=== PATIENT | male | born 2000 | race Caucasian/White ===

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

== ENCOUNTER 2019-11-10 23:28 | Emergency (ER) | payer OTHER, MEDICAID, SELFPAY ==
[2019-11-10 23:31] VITALS: BP 145/96; PULSE 138; RESP 20; TEMP 37.2; O2SAT 99
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
[2019-11-11] VITALS (10 sets, daily range): BP systolic 110–146; BP diastolic 67–90; PULSE 71–125; RESP 16–20; TEMP 36.4–36.6; O2SAT 98–100
[2019-11-11 00:01] LABS: Add Manual Diff / Slide Review NO; Basophils Absolute Auto 0 /uL (0-100); Basophils Percent Auto 0.2 % (0-2); Eosinophils Absolute Auto 0 /uL (0-450); Eosinophils Percent Auto 0.3 % (2-4); Hematocrit 46.4 % (41-53); Hemoglobin 15.8 g/dL (13.5-17.5); Lymphocytes Absolute Auto 1900 /uL (1100-4500); Lymphocytes Percent Auto 18.3 % (25-40); Mean Corpuscular HGB Conc 34.1 % (30-36); Mean Corpuscular Hemoglobin 28.7 PG (26-34); Mean Corpuscular Volume 84.2 fL (80-100); Monocytes Absolute Auto 700 /uL (0-900); Neutrophils Absolute Auto 7500 /uL (1500-7000); Neutrophils Percent Auto 74.2 % (50-75); Platelet Count 378 X10^3/uL (150-400); Red Blood Cell Count 5.51 X10^6/uL (4.5-5.9); Red Cell Distribution Width 13.6 % (11.6-14.8); White Blood Cell Count 10.1 X10^3/uL (4.5-11.0)
[2019-11-11 00:12] LABS: COVID19 -Nasal RAPID Negative (Negative)
[2019-11-11 00:18] LABS: Acetaminophen < 10 ug/mL (10-30); Alanine Aminotransferase 39 IU/L (<50); Albumin 4.9 g/dL (3.5-5.0); Albumin Globulin Ratio 1.4 (1.0-2.8); Alkaline Phosphatase 100 U/L (38-126); Aspartate Aminotransferase 41 IU/L (17-59); BUN Creatinine Ratio 11.8 (6-22); Bilirubin Total 1.6 mg/dL (0.2-1.3); Blood Urea Nitrogen 15 mg/dL (9-20); Calcium 9.7 mg/dL (8.4-10.2); Carbon Dioxide 27 mmol/L (22-32); Chloride 103 mmol/L (98-107); Estimated Glomerular Filt Rate > 60.0 mL/min (>60); Ethanol (ETOH) < 10 mg/dL; Globulin 3.5 g/dL (1.7-4.1); Glucose 114 mg/dL (70-100); HEMOLYSIS < 15 (0-50); Lipase 26 U/L (23-300); Potassium 3.8 mmol/L (3.4-5.1); Salicylate < 1.0 mg/dL (<20); Sodium 142 mmol/L (137-145); Total Protein 8.4 g/dL (6.3-8.2)
--- NOTE | 2019-11-11 00:35 | PC.NURSE ---
Pt very talkative about a variety of subjects that are completly unrelated to each other. Pt starts on one string of thought and then moves quickly to the next. between crying and laughing
[2019-11-11 00:55] LABS: Thyroid Stimulating Hormone 11.8 uIU/mL (0.47-4.68)
--- NOTE | 2019-11-11 01:02 | PC.NURSE ---
Pts mother and ED are in the RM speaking with the Pt
--- NOTE | 2019-11-11 01:15 | PC.NURSE ---
Pts mother is in Rm talking with Pt
--- NOTE | 2019-11-11 01:18 | PC.NURSE ---
Pts Mother is Going home for the evening. Mother would Like a call in the morning from [employer] or once a plan has been reached. Mothers name is : Ellen Haro
[2019-11-11 02:30] LABS: Free T3, Triiodothyronine Free 4.71 pg/mL (2.77-5.27); Free T4, Direct Thyroxine 1.45 ng/dL (0.78-2.19)
--- NOTE | 2019-11-11 04:38 | PC.NURSE ---
Pt resting on mattress, eyes closed chest rising and falling
--- NOTE | 2019-11-11 07:25 | PC.NURSE ---
patient calm and cooperative, asked to use the phone and was given access to the phone at nurses station outside rm 13. given a urinal and was not able to give sample.
--- NOTE | 2019-11-11 07:43 | PC.NURSE ---
patient make phone calls to his Mother and patient ask for social workers.
--- NOTE | 2019-11-11 09:04 | PC.NURSE ---
patient is talking to the shearing [employer] worker, patient is calm ,well cooperate and relax.
[2019-11-11 09:15] LABS: Bacteria Urine None Seen; RBC Urine None Seen (0-5/HPF); WBC Urine None Seen (0-5/HPF)
[2019-11-11 09:16] LABS: Appearance Urine UA CLEAR; Bilirubin Urine UA NEGATIVE (NEGATIVE); Color Urine UA YELLOW; Glucose Urine UA NEGATIVE (Negative); Ketones Urine UA NEGATIVE (NEGATIVE); Leukocyte Esterase Urine UA NEGATIVE (NEGATIVE); Nitrite Urine UA NEGATIVE (Negative); Occult Blood Urine UA NEGATIVE (Negative); Protein Urine UA TRACE (Negative); Specific Gravity Urine UA 1.025 (1.000-1.035); Urobilinogen Urine UA 0.2 E.U./dL (0.2); pH Urine UA 5.5 (4.5-8.0)
[2019-11-11 09:20] LABS: UR Morphine/Opiate cutoff 300 Negative (Negative); Ur Creatinine Normal (Normal); Ur Specific Gravity Normal (Normal); Urine Amphetamines Positive (Negative); Urine Barbiturates Negative (Negative); Urine Benzodiazepines Negative (Negative); Urine Cocaine Negative (Negative); Urine MDMA Negative (Negative); Urine Methadone Negative (Negative); Urine Methamphetamines Negative (Negative); Urine Oxycodone Negative (Negative); Urine Phencyclidine Negative (Negative); Urine Tetrahydrocannabinol Positive (Negative); Urine Tricyclic Antidepressant Negative (Negative); Urine pH Normal (Normal)
[2019-11-11 09:22] LABS: Culture Indicated Urine Cult Not Indicated; Hyaline Casts Urine 1-5/LPF; Mucus Urine 3+ (Negative)
--- NOTE | 2019-11-11 11:01 | PC.NURSE ---
patient asking to talk to one of the social workers patient said he wanted to tell social workers about his happy thoughts.
--- NOTE | 2019-11-11 11:54 | PC.NURSE ---
assist patient to the bathroom patient was calm and relax while walking to the bathroom
--- NOTE | 2019-11-11 13:32 | PC.NURSE ---
walk with patient to the bathroom patient was calm
--- NOTE | 2019-11-11 14:43 | PC.NURSE ---
Pt security public safety officer reports to this RN that pt is crying, wants to talk to his sister. Pt offered use of the phone. Given water.
--- NOTE | 2019-11-11 14:47 | PC.NURSE ---
patient was crying I asked if he needed something patient said his okay i also asked if patient want to talk to his sister patient dont respond.
--- NOTE | 2019-11-11 14:53 | PC.NURSE ---
walked patient to the bathroom patient angry patient said he cant see clearly patient want his eye glasses asked patient if he has with him patient said he broke his glasses
--- NOTE | 2019-11-11 15:18 | PC.NURSE ---
Spoke with mom, Ellen, wanted to know where to look for his glasses and phone. Updated with POC.
--- NOTE | 2019-11-11 15:18 | PC.NURSE ---
Pt requested eye patch. Asked nurse if possible. Pt then requested to speak with someone to make an eye doctor appointment. Informed patient that nurse will be coming to speak to him soon. Pt then asked if he could use the restroom out in hallway. Informed patient that he has been requested to use urinal pt responded with you're hilarious, please go away.
--- NOTE | 2019-11-11 15:25 | PC.NURSE ---
Mom gave friend's phone number, Wm, if Jeff wants to call him: [phone].
--- NOTE | 2019-11-11 15:45 | PC.NURSE ---
pt decided to call friend, Wm per directive from mother. Pt stated to friend that he wanted to call him to let him know he was going to come out as trans and was going to go by the name of matthias. When friend asked pt how he was doing, pt stated I'm doing great. Pt also stated he was scared. Pt abruptly ended phone call with friend then after trying to strike conversation, pt explained that he does not like to have fun he likes to make fun of other people or other people like to make fun of him or at least they did in high school Pt then returned to room and laid down.
--- NOTE | 2019-11-11 16:16 | PC.NURSE ---
Addendum entered by Lana Roberson CNA 11/11/19 17:22: Pt went to restroom and seemed much calmer then called friend Wm and had conversation about community center referral from friend. Pt was very appreciative and calm. Addendum entered by Lana Roberson CNA 11/11/19 16:57: pt walked out and called friend stating that he needed to talk to Wm because he is coming out as trans and his name was Shiroe. Pt then spoke with friend for about 5 minutes and hung up to eat some food and get proper clearance. Pt then returned to room asking if friend, Wm, could come pick him up. [facility] by 6PM tonight to notify of bed availability and will let him know once we have spoken with them. Addendum entered by Lana Roberson CNA 11/11/19 16:53: RN Notified Addendum entered by Lana Roberson CNA 11/11/19 16:44: Pt called mother again and got ahold of her asking her to come pick him up stating that he was letting himself go. Pt mother requested to talk to TURKEY FARMER. Pt mother asked what she could do to make him feel more comfortable and if we were trying to make him uncomfortable with room accommodations. This TURKEY FARMER informed mother that pt was in room for safety to which she responded pt would only hurt himself by OD'ing on medications. That is what he has done in the past. Pt's mother requested that staff update pt as to why he is here and what is happening next. Addendum entered by Lana Roberson CNA 11/11/19 16:37: Pt walked out of room and attempted to leave. Nurse stood in front of door and helped redirect patient. Pt chose to go to restroom where he began talking to himself and stated he needed to poop. Pt wandered bathroom, became agitated, then went back to room and laid down. Nurse went to administer medication to pt. Shortly after, pt walked out of room requesting to call mother. Pt called mother but no answer, and returned to room where he began to cry loudly. Original Note: Pt walked out of room and asked if exit door was the door he should go to. When informed he is unable to leave at this time, he decided to use the restroom. Pt went into the restroom but did not void. Pt exited restroom and walked back into room. Pt then asked to have COVID swab performed, after checking chart, informed pt that he is COVID negative per swab taken upon arrival.
[2019-11-11] MEDS: LORazepam 0.5 MG TABLET 1 MG PO ×2 (16:34→18:26)
--- NOTE | 2019-11-11 17:59 | PC.NURSE ---
RN from [facility] called, wants a doc-to-doc conversation, they are considering admit. RN updated on pt's status.
--- NOTE | 2019-11-11 18:36 | PC.NURSE ---
Spoke with patients mother, Alicja regarding acceptance to [facility] for Psych treatment in [facility]. Alicja advised her permission and that she will be in to visit him before he departs. pt given 1mg PO ativan per APR. BLS transport being arranged at this time.
--- NOTE | 2019-11-11 19:29 | PC.NURSE ---
Pt tearful, walking towards exit doors of ER. States he just doesn't know. Reoriented to room and updated on plan to stay overnight until we can get him to another hospital. Pt provided with fluids.
--- NOTE | 2019-11-11 19:33 | PC.NURSE ---
Pt tearful, walked towards door stating I don't understand! Updated on plans to transport in the am w/ verbalized understanding. Easily redirectable by this RN. Provider aware. No worders obtained.
--- NOTE | 2019-11-11 19:35 | PC.NURSE ---
Pt agreeable to take a shower with RECEIVER/LABORER at arm's length for safety.
[2019-11-11] MEDS: OLANZapine 2.5 MG TABLET 5 MG PO (20:11)
--- NOTE | 2019-11-11 20:11 | PC.NURSE ---
Pt took shower and is visiting with mother, eating a hamburger. Appears calm, cooperative at this time.
--- NOTE | 2019-11-11 20:21 | PC.NURSE ---
Addendum entered by Lana Roberson CNA 11/11/19 22:57: Pt resting peacefully. Woke one time, offered warm blanket and pt returned to sleep. Giving report to sitter. Original Note: Pt mother showed up and pt seemed to get very agitated. Offered pt a shower and patient agreed. Pt took shower mostly unassisted. Placed gurney and tray table in room for pt per charge nurse request. Bed low as possible, locked with two pillows, flat sheet, green fitted sheet and alberto conforter. Mother in room w/patient eating burger from [employer]. Nurse conversing with mother re: pt medications. Pt appreciative for bed and shower. Much less agitated.
--- NOTE | 2019-11-11 20:27 | PC.NURSE ---
Spoke with mother at bedside. Pt assessed and is more coherent at this time after showering and eating dinner. Pt still voluntary to [facility]. Mother's questions answered at best ability. pt appears more calm with mother at bedside. given zyprexa per APR. Resting on stretcher at this time in NAD
--- NOTE | 2019-11-11 23:05 | PC.NURSE ---
Cara Navarro on Pt 1:1 @7130. Pt is lying on gurney with bed rails up per Pt request. Pt eyes closed, chest rising and falling
--- NOTE | 2019-11-12 02:02 | PC.NURSE ---
eyes closed chest rising and falling
[2019-11-12 02:50] VITALS: BP 112/60; PULSE 60; RESP 16; O2SAT 99
--- NOTE | 2019-11-12 06:15 | PC.NURSE ---
Pt lying on gurney eyes closed chest rising and falling
--- NOTE | 2019-11-12 07:15 | PC.NURSE ---
Pts mother has come to visit before Pt leaves at 0900. Mother at bedside
--- NOTE | 2019-11-12 08:30 | PC.NURSE ---
VALVE SETTER speaking with Pt and mother in room
--- NOTE | 2019-11-12 08:45 | PC.NURSE ---
Pt awake. bathroom provided. Pt brushing teeth and washing face before transport arrives. Pt is calm and cooperative
[2019-11-12 08:55] VITALS: BP 119/75; PULSE 88; O2SAT 98
--- NOTE | 2019-11-12 09:16 | PC.NURSE ---
Pt has left ED with Transport to [facility]
--- NOTE | 2019-11-12 09:27 | PC.NURSE ---
report given to Brigida at [facility]
== END 2019-11-12 09:20 ==
PROVIDERS: Emergency Medicine; Emergency Provider Emergency Medicine; Family Provider Family Medicine; PCP Family Medicine
DX: F29 Unspecified psychosis not due to a substance or known physiological condition (principal)
CPT/HCPCS: 36415; 80053; 80305; 80320; 80329; 81001; 82962; 83690; 84439; 84443; 84481; 85025; 87635; 99284; G0480

== ENCOUNTER 2019-11-26 12:23 | Emergency (ER) | payer OTHER, MEDICAID, SELFPAY ==
[2019-11-26 12:35] VITALS: BP 128/73; PULSE 96; RESP 16; TEMP 36.6; O2SAT 96; BMI 67.9
--- NOTE | 2019-11-26 13:15 | PC.NURSE ---
Pt yelling and being disruptive in waiting area. mother at side. mother states pt was recently discharged from [facility] and today got splinter under R index fingernail. Pt yelling i need to leave given a cup of warm water to soak finger in for easier removal. brought to room 13 with mother. cooperative at this time. handoff report given to Marcial, RNs.
--- NOTE | 2019-11-26 13:47 | ED_ITS ---
HPI - Skin/Abscess/Foreign Bdy <Grady WattsJerad [facility] - Last Filed: 11/26/19 13:48> General Chief complaint: Skin/Abscess/Foreign Body Stated complaint: SPILINTER RIGHT INDEX FINGER Time Seen by Provider: 11/26/19 13:16 Source: patient Mode of arrival: Ambulatory History of Present Illness HPI narrative: I signed the this patient and decided to voluntary leave before the assessment. Have not seen the patient or evaluated [id number]. Related Data Home Medications Medication Instructions Recorded Confirmed benztropine 0.5 mg tablet 0.5 mg PO DAILY 11/26/19 11/26/19 divalproex 250 mg tablet,delayed 250 mg PO BID 11/26/19 11/26/19 release gabapentin 100 mg capsule 200 mg PO BID PRN cap 11/26/19 11/26/19 paliperidone 6 mg tablet,extended 6 mg PO QAM 11/26/19 11/26/19 release 24 hr propranolol 10 mg tablet 10 mg PO BID 11/26/19 11/26/19 Previous Rx's Medication Instructions Recorded hydroxyzine HCl 25 mg tablet See Rx Instructions .ROUTE 11/26/19 .COMPLEX #60 tab Allergies Allergy/AdvReac Type Severity Reaction Status Date / Time grass pollen [GRASS POLLEN] Allergy Unknown Verified 11/26/19 15:39 CAT DANDER Allergy Mild RASH Uncoded 11/26/19 15:39 DOG DANDER Allergy Mild RASH Uncoded 11/26/19 15:39 TREE POLLEN Allergy Mild CONGESTION Uncoded 11/26/19 15:39 Patient History <Grady WattsJerad [facility] - Last Filed: 11/26/19 13:48> Medical History (Updated 11/26/19 @ 13:38 by Cristina Mckeon RN) ADHD (attention deficit hyperactivity disorder), combined type (Chronic) Chronic urticaria (Chronic) Enuresis (Chronic) Hayfever (Chronic) Papillary adenoma (Resolved) Thyroid enlargement (Resolved) Surgical History S/P subtotal thyroidectomy (Resolved) Status post appendectomy (Resolved 2007) Family History Mother Asthma Diabetes mellitus ADHD Social History Smoking Status: Never smoker Smoking Status: Never smoker alcohol intake frequency: a few times a month Substance Use Type: marijuana Exam <Grady KyleDUSTY Mars - Last Filed: 11/26/19 13:48> Initial Vital Signs Initial Vital Signs: Vital Signs Temperature 97.9 F 11/26/19 12:35 Pulse Rate 96 H 11/26/19 12:35 Respiratory Rate 16 11/26/19 12:35 Blood Pressure 128/73 11/26/19 12:35 Pulse Oximetry 96 11/26/19 12:35 <Gael Sin MD - Last Filed: 11/26/19 18:14> Initial Vital Signs Initial Vital Signs: Vital Signs Temperature 97.9 F 11/26/19 12:35 Pulse Rate 96 H 11/26/19 12:35 Respiratory Rate 16 11/26/19 12:35 Blood Pressure 128/73 11/26/19 12:35 Pulse Oximetry 96 11/26/19 12:35 Course <DUSTY Huizar - Last Filed: 11/26/19 13:48> Vital Signs Vital signs: Vital Signs - 8 hr 11/26/19 12:35 Temperature 97.9 F Pulse Rate 96 H Respiratory Rate 16 Blood Pressure 128/73 Pulse Oximetry 96 <Gael Sin MD - Last Filed: 11/26/19 18:14> Vital Signs Vital signs: Vital Signs - 8 hr 11/26/19 12:35 Temperature 97.9 F Pulse Rate 96 H Respiratory Rate 16 Blood Pressure 128/73 Pulse Oximetry 96 Discharge Plan Departure Patient Disposition: Left Without Being Seen Clinical Impression: Patient left after triage Discharge Date/Time: 11/26/19 13:23 <Gael Sin MD - Last Filed: 11/26/19 18:14> Cosign ED Attending Estrellita Attestation: I was immediately available in the department for consultation. This documentation has been reviewed and I agree with assessment and plan. Supervised by Gael Sin MD
== END 2019-11-26 13:23 | disposition left against medical advice (07) ==
PROVIDERS: Emergency Provider Nurse Practitioner Family; Family Provider Family Medicine; PCP Family Medicine
CPT/HCPCS: 99281

== ENCOUNTER 2019-12-01 02:24 | Emergency (ER) | payer OTHER, MEDICAID, SELFPAY ==
[2019-12-01 02:30] VITALS: BP 137/80; PULSE 78; RESP 17; TEMP 36.9; O2SAT 98
--- NOTE | 2019-12-01 02:32 | ED_ITS ---
HPI - General Adult <Angeline Escobar MD - Last Filed: 12/25/19 03:59> General Chief complaint: Psychiatric Symptoms Stated complaint: Hallucinations Time Seen by Provider: 12/01/19 02:31 History of Present Illness HPI narrative: 19-year-old gentleman with the history of major depression, severe anxiety disorder ADHD previous abuse of stimulants for ADHD, prior suicidal ideation and suicide attempts recent voluntary hospitalization at [facility] in [place] for similar issues. This evening he called 911 for help when he was hearing voices that were getting louder and louder telling him to hurt himself. They found him wandering in the streets outside close to his home and brought him to the emergency room for further evaluation. He states he does not actually have a suicide plan but notes that they ?is a bridge? and told police officers the voices are telling me head Bang Bang?. He does not have access to guns. His mother call to offer additional information. She does have a signed release on file for exchange of medical information. She states that he had been doing moderately well in the week or so after being discharged from [facility] in [place]. He saw Dr. Parra on 11/25 who was concerned with the increasing agitation and overall presentation as well as previous history that this may be a 1st break psychosis. Additional psychiatric care was arranged through [facility] and he was seen on 11/26 there. He was started on Wellbutrin SR 150 mg daily for 3 days to increase to b.i.d. after that. Rogelio was under the impr ession that he was supposed to stop all of his other medications and continue only on the Wellbutrin. His mother has been giving him his medications but she isn't absolutely sure that he has actually been taking them. She was not aware that he left the house tonight. Medications currently include propranolol 10 mg b.i.d. Benztropine 0.5 mg daily morning Paliperidone (invega) 6 mg daily Divalproic acid extended release 250 mg twice a day Gabapentin 100 mg twice a day Hydroxyzine 50 mg at bedtime and 25 mg up to b.i.d. for agitation during the day Bupropion SR 150 mg daily through the and scheduled to increase to b.i.d. after that Related Data Home Medications Medication Instructions Recorded Confirmed benztropine 0.5 mg tablet 0.5 mg PO DAILY 11/26/19 11/27/19 divalproex 250 mg tablet,delayed 250 mg PO BID 11/26/19 11/27/19 release gabapentin 100 mg capsule 200 mg PO BID PRN cap 11/26/19 11/27/19 paliperidone 6 mg tablet,extended 6 mg PO QAM 11/26/19 11/27/19 release 24 hr propranolol 10 mg tablet 10 mg PO BID 11/26/19 11/27/19 Previous Rx's Medication Instructions Recorded hydroxyzine HCl 25 mg tablet See Rx Instructions .ROUTE 11/26/19 .COMPLEX #60 tab Allergies Allergy/AdvReac Type Severity Reaction Status Date / Time grass pollen [GRASS POLLEN] Allergy Unknown Verified 11/27/19 13:57 CAT DANDER Allergy Mild RASH Uncoded 11/27/19 13:57 DOG DANDER Allergy Mild RASH Uncoded 11/27/19 13:57 TREE POLLEN Allergy Mild CONGESTION Uncoded 11/27/19 13:57 Review of Systems <Angeline Escobar MD - Last Filed: 12/25/19 03:59> Review of Systems ROS Unobtainable: Unobtainable due to mental condition Patient History <Angeline Escobar MD - Last Filed: 12/25/19 03:59> Medical History ADHD (attention deficit hyperactivity disorder), combined type (Chronic) Chronic urticaria (Chronic) Enuresis (Chronic) Hayfever (Chronic) Papillary adenoma (Resolved) Thyroid enlargement (Resolved) Surgical History S/P subtotal thyroidectomy (Resolved) Status post appendectomy (Resolved 2007) Family History Mother Asthma Diabetes mellitus ADHD Social History Smoking Status: Never smoker Smoking Status: Never smoker alcohol intake frequency: a few times a month Substance Use Type: marijuana Exam <Angeline Escobar MD - Last Filed: 12/25/19 03:59> Narrative Exam Narrative: General: Extraordinarily anxious, poor eye contact, trying to hide under blankets intermittently HEENT: Moist mucous membranes, normal sclera with reactive pupils, Respiratory: Lungs are clear to auscultation, no wheezing no rales no rhonchi. Full and symmetrical air movement Cardiac: Regular rate and rhythm no murmurs no bruits Abdomen: Soft, nontender good bowel tones, no flank pain Skin: Warm and dry, no rashes, no track araujo and no indication of self-harm Neurologic: Grossly neurologically intact with no obvious asymmetries or abnormalities Extremities: No trauma, well perfused Psych: Trying to cooperate but quite fearful, clearly responding to internal stimuli, quivering and curled up into a ball on the bed with anxiety Initial Vital Signs Initial Vital Signs: Vital Signs Temperature 98.4 F 12/01/19 02:30 Pulse Rate 78 12/01/19 02:30 Respiratory Rate 17 12/01/19 02:30 Blood Pressure 137/80 12/01/19 02:30 Pulse Oximetry 98 12/01/19 02:30 <Guillermina Early DO - Last Filed: 12/01/19 16:22> Initial Vital Signs Initial Vital Signs: Vital Signs Temperature 98.4 F 12/01/19 02:30 Pulse Rate 78 12/01/19 02:30 Respiratory Rate 17 12/01/19 02:30 Blood Pressure 137/80 12/01/19 02:30 Pulse Oximetry 98 12/01/19 02:30 Course <Angeline Escobar MD - Last Filed: 12/25/19 03:59> Orders Ordered: Discontinued Medications Benztropine Mesylate (Cogentin) 0.5 mg PO NOW ONE Stop: 12/01/19 03:22 Last Admin: 12/01/19 03:53 Dose: Not Given Documented by: WOJCIECH Benztropine Mesylate (Cogentin) 0.5 mg PO NOW ONE Stop: 12/01/19 07:40 Last Admin: 12/01/19 08:41 Dose: 0.5 mg Documented by: YANETH Clonazepam (Klonopin) 1 mg PO NOW ONE Stop: 12/01/19 03:20 Last Admin: 12/01/19 03:47 Dose: 1 mg Documented by: WOJCIECH Divalproex Sodium (Depakote) 250 mg PO NOW ONE Stop: 12/01/19 03:20 Last Admin: 12/01/19 03:47 Dose: 250 mg Documented by: WOJCIECH Gabapentin (Neurontin) 100 mg PO NOW ONE Stop: 12/01/19 03:20 Last Admin: 12/01/19 03:47 Dose: 100 mg Documented by: WOJCIECH Hydroxyzine Pamoate (Vistaril) 50 mg PO NOW ONE Stop: 12/01/19 03:20 Last Admin: 12/01/19 03:46 Dose: 50 mg Documented by: WOJCIECH Propranolol HCl (Inderal) 10 mg PO NOW ONE Stop: 12/01/19 03:20 Last Admin: 12/01/19 03:47 Dose: 10 mg Documented by: WOJCIECH Vital Signs Vital signs: Vital Signs - 8 hr 12/01/19 11:04 12/01/19 14:30 Temperature 98.1 F Pulse Rate 76 70 Respiratory Rate 16 14 Blood Pressure 111/55 L 112/70 Pulse Oximetry 99 99 <Guillermina Early DO - Last Filed: 12/01/19 16:22> Orders Ordered: Discontinued Medications Benztropine Mesylate (Cogentin) 0.5 mg PO NOW ONE Stop: 12/01/19 03:22 Last Admin: 12/01/19 03:53 Dose: Not Given Documented by: WOJCIECH Benztropine Mesylate (Cogentin) 0.5 mg PO NOW ONE Stop: 12/01/19 07:40 Last Admin: 12/01/19 08:41 Dose: 0.5 mg Documented by: YANETH Clonazepam (Klonopin) 1 mg PO NOW ONE Stop: 12/01/19 03:20 Last Admin: 12/01/19 03:47 Dose: 1 mg Documented by: WOJCIECH Divalproex Sodium (Depakote) 250 mg PO NOW ONE Stop: 12/01/19 03:20 Last Admin: 12/01/19 03:47 Dose: 250 mg Documented by: WOJCIECH Gabapentin (Neurontin) 100 mg PO NOW ONE Stop: 12/01/19 03:20 Last Admin: 12/01/19 03:47 Dose: 100 mg Documented by: WOJCIECH Hydroxyzine Pamoate (Vistaril) 50 mg PO NOW ONE Stop: 12/01/19 03:20 Last Admin: 12/01/19 03:46 Dose: 50 mg Documented by: WOJCIECH Propranolol HCl (Inderal) 10 mg PO NOW ONE Stop: 12/01/19 03:20 Last Admin: 12/01/19 03:47 Dose: 10 mg Documented by: WOJCIECH Vital Signs Vital signs: Vital Signs - 8 hr 12/01/19 11:04 12/01/19 14:30 Temperature 98.1 F Pulse Rate 76 70 Respiratory Rate 16 14 Blood Pressure 111/55 L 112/70 Pulse Oximetry 99 99 Medical Decision Making <Angeline Escobar MD - Last Filed: 12/25/19 03:59> Medical Records Medical records reviewed: Yes I reviewed the patient's medical records. Lab Data Lab results reviewed: Yes I reviewed the patient's lab results. Result diagrams: 12/01/19 03:05 12/01/19 03:05 Labs: Lab Results 12/01/19 12/01/19 12/01/19 Range/Units 03:05 03:05 03:05 WBC 10.0 (4.5-11.0) X10^3/uL RBC 5.32 (4.5-5.9) X10^6/uL Hgb 14.8 (13.5-17.5) g/dL Hct 44.9 (41-53) % MCV 84.4 (80-100) fL MCH 27.8 (26-34) PG MCHC 32.9 (30-36) % RDW 13.8 (11.6-14.8) % Plt Count 307 (150-400) X10^3/uL Neut % (Auto) 67.4 (50-75) % Lymph % (Auto) 23.6 L (25-40) % [place] % (Auto) 7.8 (3-14) % Eos % (Auto) 0.9 L (2-4) % Baso % (Auto) 0.3 (0-2) % Neut # (Auto) 6700 (1752-4202) /uL Lymph # (Auto) 2400 (5066-3887) /uL [place] # (Auto) 800 (0-900) /uL Eos # (Auto) 100 (0-450) /uL Baso # (Auto) 0 (0-100) /uL Sodium 139 (137-145) mmol/L Potassium 3.8 (3.4-5.1) mmol/L Chloride 106 (98-107) mmol/L Carbon Dioxide 28 (22-32) mmol/L BUN 15 (9-20) mg/dL Creatinine 0.74 (0.66-1.25) mg/dL Estimated GFR > 60.0 (>60) mL/min BUN/Creatinine Ratio 20.3 (6-22) Glucose 99 (70-100) mg/dL Calcium 9.2 (8.4-10.2) mg/dL Total Bilirubin 1.2 (0.2-1.3) mg/dL AST 22 (17-59) IU/L ALT 19 (<50) IU/L Alkaline Phosphatase 81 (38-126) U/L Total Protein 7.8 (6.3-8.2) g/dL Albumin 4.5 (3.5-5.0) g/dL Globulin 3.3 (1.7-4.1) g/dL Albumin/Globulin Ratio 1.4 (1.0-2.8) TSH 9.63 H (0.47-4.68) uIU/mL U Opiates 300ng/mL cut (Negative) Ur Oxycodone Screen (Negative) Urine Methadone Screen (Negative) Ur Barbiturates Screen (Negative) U Tricyclic Antidepress (Negative) Ur Phencyclidine Scrn (Negative) Ur Amphetamines Screen (Negative) U Methamphetamines Scrn (Negative) Ur MDMA Scrn (Ecstasy) (Negative) U Benzodiazepines Scrn (Negative) Urine Cocaine Screen (Negative) U Marijuana (THC) Screen (Negative) Ethyl Alcohol < 10 ( - 10) mg/dL COVID-19 PCR (Negative) 12/01/19 12/01/19 Range/Units 03:09 03:50 WBC (4.5-11.0) X10^3/uL RBC (4.5-5.9) X10^6/uL Hgb (13.5-17.5) g/dL Hct (41-53) % MCV (80-100) fL MCH (26-34) PG MCHC (30-36) % RDW (11.6-14.8) % Plt Count (150-400) X10^3/uL Neut % (Auto) (50-75) % Lymph % (Auto) (25-40) % [place] % (Auto) (3-14) % Eos % (Auto) (2-4) % Baso % (Auto) (0-2) % Neut # (Auto) (6784-2599) /uL Lymph # (Auto) (9844-4534) /uL [place] # (Auto) (0-900) /uL Eos # (Auto) (0-450) /uL Baso # (Auto) (0-100) /uL Sodium (137-145) mmol/L Potassium (3.4-5.1) mmol/L Chloride (98-107) mmol/L Carbon Dioxide (22-32) mmol/L BUN (9-20) mg/dL Creatinine (0.66-1.25) mg/dL Estimated GFR (>60) mL/min BUN/Creatinine Ratio (6-22) Glucose (70-100) mg/dL Calcium (8.4-10.2) mg/dL Total Bilirubin (0.2-1.3) mg/dL AST (17-59) IU/L ALT (<50) IU/L Alkaline Phosphatase (38-126) U/L Total Protein (6.3-8.2) g/dL Albumin (3.5-5.0) g/dL Globulin (1.7-4.1) g/dL Albumin/Globulin Ratio (1.0-2.8) TSH (0.47-4.68) uIU/mL U Opiates 300ng/mL cut Negative (Negative) Ur Oxycodone Screen Negative (Negative) Urine Methadone Screen Negative (Negative) Ur Barbiturates Screen Negative (Negative) U Tricyclic Antidepress Negative (Negative) Ur Phencyclidine Scrn Negative (Negative) Ur Amphetamines Screen Negative (Negative) U Methamphetamines Scrn Negative (Negative) Ur MDMA Scrn (Ecstasy) Negative (Negative) U Benzodiazepines Scrn Negative (Negative) Urine Cocaine Screen Negative (Negative) U Marijuana (THC) Screen Negative (Negative) Ethyl Alcohol ( - 10) mg/dL COVID-19 PCR Negative (Negative) Urine Dip Bedside Urine Glucose Negative Bedside Urine Bilirubin - Negative Bedside Urine Ketone - Negative Urine Specific [place] 1.010 Bedside Urine Occult Blood - Negative Bedside Urine pH 6.5 Bedside Urine Protein - Negative Bedside Urine Urobilinogen - Negative Bedside Urine Nitrite - Negative Bedside Urine Leukocytes - Negative Esterase Point of care testing: Urine Dip Bedside Urine Glucose Negative Bedside Urine Bilirubin - Negative Bedside Urine Ketone - Negative Urine Specific [place] 1.010 Bedside Urine Occult Blood - Negative Bedside Urine pH 6.5 Bedside Urine Protein - Negative Bedside Urine Urobilinogen - Negative Bedside Urine Nitrite - Negative Bedside Urine Leukocytes - Negative Esterase MDM Narrative Medical decision making narrative: 19-year-old gentleman with increasing auditory hallucinations and command hallucinations telling him to hurt himself. Recent voluntary inpatient psychiatric stay at [facility]. Three days of Wellbutrin SR 150 and it may be that he has not been taking any of his other medications, patient is unsure and mother can not confirm 1 way or the other. At this time he is extraordinarily anxious, responding to internal stimuli, frightened and sleep deprived. Will give him his usual morning medications (propranolol, benztropine, valproic acid, gabapentin, hydroxyzine), will hold the Wellbutrin for now. His mother is bringing in the paliperidone from home as we do not have an on formulary. He is also given 1 mg of oral clonazepam to help with general anxiety. Lab work and urine drug screen will be obtained. Will try and allow some sleep to see if that helps calm him at all and will likely need social work and psychiatric help with further evaluation tomorrow. First true psychotic break presentation remains a significant probability. Possibility of simple medication mismanagement and side effects/withdrawal symptoms is another possibility. At this time, I do not expect that drugs of any kind are playing a role. His mom has closely been watching him in the week and a half he has been home from his inpatient psychiatric stay and he has had no access to stimulants, THC, alcohol or opiates. 530am medically clear. Sleeping comfortably, possibly the most important therapeutic for him right now. Will need further assessment and social work help later today. 6am discussion with mom. She asked/suggested that if he is to be discharged home, that a written prescription for physical activity (walk 30min am and pm, 15 min stretching every am) may be helpful for him and augment the healthy routines she is try to establish for him at home. She says that he follows doc tor's orders very specifically and diligently. <Guillermina Early, DO - Last Filed: 12/01/19 16:22> Lab Data Labs: Lab Results 12/01/19 12/01/19 12/01/19 Range/Units 03:05 03:05 03:05 WBC 10.0 (4.5-11.0) X10^3/uL RBC 5.32 (4.5-5.9) X10^6/uL Hgb 14.8 (13.5-17.5) g/dL Hct 44.9 (41-53) % MCV 84.4 (80-100) fL MCH 27.8 (26-34) PG MCHC 32.9 (30-36) % RDW 13.8 (11.6-14.8) % Plt Count 307 (150-400) X10^3/uL Neut % (Auto) 67.4 (50-75) % Lymph % (Auto) 23.6 L (25-40) % [place] % (Auto) 7.8 (3-14) % Eos % (Auto) 0.9 L (2-4) % Baso % (Auto) 0.3 (0-2) % Neut # (Auto) 6700 (1543-2599) /uL Lymph # (Auto) 2400 (5553-1942) /uL [place] # (Auto) 800 (0-900) /uL Eos # (Auto) 100 (0-450) /uL Baso # (Auto) 0 (0-100) /uL Sodium 139 (137-145) mmol/L Potassium 3.8 (3.4-5.1) mmol/L Chloride 106 (98-107) mmol/L Carbon Dioxide 28 (22-32) mmol/L BUN 15 (9-20) mg/dL Creatinine 0.74 (0.66-1.25) mg/dL Estimated GFR > 60.0 (>60) mL/min BUN/Creatinine Ratio 20.3 (6-22) Glucose 99 (70-100) mg/dL Calcium 9.2 (8.4-10.2) mg/dL Total Bilirubin 1.2 (0.2-1.3) mg/dL AST 22 (17-59) IU/L ALT 19 (<50) IU/L Alkaline Phosphatase 81 (38-126) U/L Total Protein 7.8 (6.3-8.2) g/dL Albumin 4.5 (3.5-5.0) g/dL Globulin 3.3 (1.7-4.1) g/dL Albumin/Globulin Ratio 1.4 (1.0-2.8) TSH 9.63 H (0.47-4.68) uIU/mL U Opiates 300ng/mL cut (Negative) Ur Oxycodone Screen (Negative) Urine Methadone Screen (Negative) Ur Barbiturates Screen (Negative) U Tricyclic Antidepress (Negative) Ur Phencyclidine Scrn (Negative) Ur Amphetamines Screen (Negative) U Methamphetamines Scrn (Negative) Ur MDMA Scrn (Ecstasy) (Negative) U Benzodiazepines Scrn (Negative) Urine Cocaine Screen (Negative) U Marijuana (THC) Screen (Negative) Ethyl Alcohol < 10 ( - 10) mg/dL COVID-19 PCR (Negative) 12/01/19 12/01/19 Range/Units 03:09 03:50 WBC (4.5-11.0) X10^3/uL RBC (4.5-5.9) X10^6/uL Hgb (13.5-17.5) g/dL Hct (41-53) % MCV (80-100) fL MCH (26-34) PG MCHC (30-36) % RDW (11.6-14.8) % Plt Count (150-400) X10^3/uL Neut % (Auto) (50-75) % Lymph % (Auto) (25-40) % [place] % (Auto) (3-14) % Eos % (Auto) (2-4) % Baso % (Auto) (0-2) % Neut # (Auto) (0668-0935) /uL Lymph # (Auto) (6965-6096) /uL [place] # (Auto) (0-900) /uL Eos # (Auto) (0-450) /uL Baso # (Auto) (0-100) /uL Sodium (137-145) mmol/L Potassium (3.4-5.1) mmol/L Chloride (98-107) mmol/L Carbon Dioxide (22-32) mmol/L BUN (9-20) mg/dL Creatinine (0.66-1.25) mg/dL Estimated GFR (>60) mL/min BUN/Creatinine Ratio (6-22) Glucose (70-100) mg/dL Calcium (8.4-10.2) mg/dL Total Bilirubin (0.2-1.3) mg/dL AST (17-59) IU/L ALT (<50) IU/L Alkaline Phosphatase (38-126) U/L Total Protein (6.3-8.2) g/dL Albumin (3.5-5.0) g/dL Globulin (1.7-4.1) g/dL Albumin/Globulin Ratio (1.0-2.8) TSH (0.47-4.68) uIU/mL U Opiates 300ng/mL cut Negative (Negative) Ur Oxycodone Screen Negative (Negative) Urine Methadone Screen Negative (Negative) Ur Barbiturates Screen Negative (Negative) U Tricyclic Antidepress Negative (Negative) Ur Phencyclidine Scrn Negative (Negative) Ur Amphetamines Screen Negative (Negative) U Methamphetamines Scrn Negative (Negative) Ur MDMA Scrn (Ecstasy) Negative (Negative) U Benzodiazepines Scrn Negative (Negative) Urine Cocaine Screen Negative (Negative) U Marijuana (THC) Screen Negative (Negative) Ethyl Alcohol ( - 10) mg/dL COVID-19 PCR Negative (Negative) Urine Dip Bedside Urine Glucose Negative Bedside Urine Bilirubin - Negative Bedside Urine Ketone - Negative Urine Specific [place] 1.010 Bedside Urine Occult Blood - Negative Bedside Urine pH 6.5 Bedside Urine Protein - Negative Bedside Urine Urobilinogen - Negative Bedside Urine Nitrite - Negative Bedside Urine Leukocytes - Negative Esterase Point of care testing: Urine Dip Bedside Urine Glucose Negative Bedside Urine Bilirubin - Negative Bedside Urine Ketone - Negative Urine Specific [place] 1.010 Bedside Urine Occult Blood - Negative Bedside Urine pH 6.5 Bedside Urine Protein - Negative Bedside Urine Urobilinogen - Negative Bedside Urine Nitrite - Negative Bedside Urine Leukocytes - Negative Esterase MDM Narrative Medical decision making narrative: Patient seen evaluated by myself signed out by Dr. Escobar. I have actually seen patient in the past. Patient remains suicidal stating that he wants to jump off a bridge or get hit by a train. Looking for placement. Patient accepted at [facility] Discharge Plan Departure Patient Disposition: Xfer Psychiatric Hosp Clinical Impression: Suicidal ideation Discharge Date/Time: 12/01/19 14:48 Referrals: Flavio Stevens MD [Primary Care Provider] -
--- NOTE | 2019-12-01 02:58 | PC.NURSE ---
Pt. arrived to the department via [facility]. Pt is very confused and states feels broken. Pt. is cooperative to staff request when changing into hospital scrubs. Pt. is calmly sitting in bed.
[2019-12-01 03:16] LABS: Add Manual Diff / Slide Review NO; Basophils Absolute Auto 0 /uL (0-100); Basophils Percent Auto 0.3 % (0-2); Eosinophils Absolute Auto 100 /uL (0-450); Eosinophils Percent Auto 0.9 % (2-4); Hematocrit 44.9 % (41-53); Hemoglobin 14.8 g/dL (13.5-17.5); Lymphocytes Absolute Auto 2400 /uL (1100-4500); Lymphocytes Percent Auto 23.6 % (25-40); Mean Corpuscular HGB Conc 32.9 % (30-36); Mean Corpuscular Hemoglobin 27.8 PG (26-34); Mean Corpuscular Volume 84.4 fL (80-100); Monocytes Absolute Auto 800 /uL (0-900); Monocytes Percent Auto 7.8 % (3-14); Neutrophils Absolute Auto 6700 /uL (1500-7000); Neutrophils Percent Auto 67.4 % (50-75); Platelet Count 307 X10^3/uL (150-400); Red Blood Cell Count 5.32 X10^6/uL (4.5-5.9); Red Cell Distribution Width 13.8 % (11.6-14.8)
--- NOTE | 2019-12-01 03:19 | PC.NURSE ---
Pt. Speaking with
[2019-12-01 03:26] LABS: Alanine Aminotransferase 19 IU/L (<50); Albumin 4.5 g/dL (3.5-5.0); Albumin Globulin Ratio 1.4 (1.0-2.8); Alkaline Phosphatase 81 U/L (38-126); Aspartate Aminotransferase 22 IU/L (17-59); BUN Creatinine Ratio 20.3 (6-22); Bilirubin Total 1.2 mg/dL (0.2-1.3); Blood Urea Nitrogen 15 mg/dL (9-20); Calcium 9.2 mg/dL (8.4-10.2); Carbon Dioxide 28 mmol/L (22-32); Chloride 106 mmol/L (98-107); Estimated Glomerular Filt Rate > 60.0 mL/min (>60); Ethanol (ETOH) < 10 mg/dL; Globulin 3.3 g/dL (1.7-4.1); Glucose 99 mg/dL (70-100); HEMOLYSIS < 15 (0-50); Potassium 3.8 mmol/L (3.4-5.1); Sodium 139 mmol/L (137-145); Total Protein 7.8 g/dL (6.3-8.2)
[2019-12-01] MEDS: hydrOXYzine pamoate 25 MG CAPSULE 50 MG PO (03:46)
[2019-12-01] MEDS: PROPRANOLOL 10 MG TABLET PO (03:47)
[2019-12-01] MEDS: GABAPENTIN 100 MG CAPSULE PO (03:47)
[2019-12-01] MEDS: clonazePAM 0.5 MG TABLET 1 MG PO (03:47)
[2019-12-01] MEDS: DIVALPROEX DR 250 MG TABLET PO (03:47)
--- NOTE | 2019-12-01 03:55 | PC.NURSE ---
Pt trying to provide urine sample with no success. Pt upset and confused. Pt States I don't know what I am supposed to to do Pt encouraged to lye back down and try to relax, and there is no hurry on providing urine sample, Pt acknowledges and lays on gurney. rm lights are dimmed and sitter talks to Pt to encourage deep breathing and relaxation. Pt is currently Lying down with eyes shut chest rising and falling
[2019-12-01 04:05] LABS: Thyroid Stimulating Hormone 9.63 uIU/mL (0.47-4.68)
[2019-12-01 04:11] LABS: COVID19 -Nasal RAPID Negative (Negative)
--- NOTE | 2019-12-01 04:36 | PC.NURSE ---
Pt provided urine sample
[2019-12-01 04:50] LABS: UR Morphine/Opiate cutoff 300 Negative (Negative); Ur Creatinine Normal (Normal); Ur Specific Gravity Normal (Normal); Urine Amphetamines Negative (Negative); Urine Barbiturates Negative (Negative); Urine Benzodiazepines Negative (Negative); Urine Cocaine Negative (Negative); Urine MDMA Negative (Negative); Urine Methadone Negative (Negative); Urine Methamphetamines Negative (Negative); Urine Oxycodone Negative (Negative); Urine Phencyclidine Negative (Negative); Urine Tetrahydrocannabinol Negative (Negative); Urine Tricyclic Antidepressant Negative (Negative); Urine pH Normal (Normal)
[2019-12-01] MEDS: BENZTROPINE 1 MG TABLET 0.5 MG PO (08:41)
[2019-12-01 11:04] VITALS: BP 111/55; PULSE 76; RESP 16; TEMP 36.7; O2SAT 99
--- NOTE | 2019-12-01 12:43 | PC.NURSE ---
Pastor Alcantara here to visit with the Pt. Pt acknowledges the visit to be ok
--- NOTE | 2019-12-01 13:02 | PC.NURSE ---
Pastor Alcantara has left the Rm to wait for Pt mother in the lobby, she is bringing the Pt his eye glasses and wallet. TRANSFORMATION SPECIALIST has entered the to let the Pt know that he is going to [facility] at 3pm.
--- NOTE | 2019-12-01 13:12 | CM.SWNOTE ---
FIGURINE MAKER Note: Assessment completed. Attempted inpatient psychiatric placement for this 19yr old male that called 911 with thoughts of harming himself and hearing voices in his head. During FIGURINE MAKER assessment patient continues to report suicidal ideation and plan (see assessment for specific details). Patient aware and agreeable to voluntary placement. Placed call to [facility] and spoke with Jackie, they do have bed and will review. Packet faxed by FIGURINE MAKER which included FIGURINE MAKER assessment along with labs, and negative COVID test. In addition, placed call to [facility], [place], and [facility] none had beds. ED staff received return phone call from [facility] indicating that they can accept. Accepting provider is Dr. Garcia. Patient scheduled to be picked up at approximately 3:00pm non-urgent BLS. /Quinton visiting patient and reports that he will pass on to patient's mother the plan. Patient in agreement to this and brochure for [facility] provided. P: [facility] today. ARNIE Funez
--- NOTE | 2019-12-01 13:20 | PC.NURSE ---
Pastor Alcantara has brought in the Pts belongings that the Pts mother dropped off outside. Pastor Alcantara is briefly talking with the Pt before the Trade Show Specialist goes upstairs
--- NOTE | 2019-12-01 13:28 | PM.CHAP ---
Short visit with Pt in ED. Met with mother, Marek ([phone]), and shared plan for inpt care at [facility]. Mother left glasses and wallet for Pt. Encouraged Pt to follow through with decision for inpt care. Quinton Aguilar, Pending Sale To [facility] [phone]
[2019-12-01 14:30] VITALS: BP 112/70; PULSE 70; RESP 14; O2SAT 99
--- NOTE | 2019-12-01 14:39 | PC.NURSE ---
[facility] is here to transport pt to [facility]. pt is calm and cooperative. End pt 1:1
== END 2019-12-01 14:48 ==
PROVIDERS: Emergency Medicine; Emergency Provider Emergency Medicine; Family Provider Family Medicine; PCP Family Medicine
DX: R45.851 Suicidal ideations (principal); R44.3 Hallucinations, unspecified
CPT/HCPCS: 36415; 80053; 80305; 80320; 81003; 84443; 85025; 87635; 99284

== ENCOUNTER 2020-01-23 11:32 | Emergency (ER) | payer OTHER, MEDICAID, SELFPAY ==
[2020-01-23] VITALS (24 sets, daily range): BP systolic 105–132; BP diastolic 62–87; PULSE 74–126; RESP 12–43; TEMP 36.4; O2SAT 95–98
--- NOTE | 2020-01-23 11:40 | ED_ITS ---
HPI - General Adult General Chief complaint: Toxicology Problem Stated complaint: Overdose Time Seen by Provider: 01/23/20 11:31 Source: patient, EMS and police Mode of arrival: EMS Limitations: no limitations History of Present Illness HPI narrative: Patient is a 19-year-old male with a history of anxiety and depre ssion. Is followed by mental health. Is on multiple mental health medications. Has tried to hurt himself in the past. He states it was in middle school. He has been admitted to the hospital in the past secondary to mental health issues. He states that last evening he was having racing thoughts. He did admit that they were not dangerous thoughts. They were not thoughts about hurting himself they were just thoughts the kept going over on over in his head and he cannot make them stop. They were about various things. He did taken trazodone last evening to try to help him sleep but could not sleep. He states he could not get the thoughts under control so he stated that if he could get the thoughts to stop then it be better if he just killed himself. He took up to 15 of his mother's 10 mg Ambien tabs sometime between 10 and 12 12 this morning. He states that he did do this in an effort to kill himself. The patient's mother called the police who then called EMS. EMS did give him charcoal prior to arrival. Related Data Home Medications Medication Instructions Recorded Confirmed benztropine 0.5 mg tablet 0.5 mg PO DAILY 11/26/19 12/25/19 divalproex 250 mg tablet,delayed 500 mg PO BEDTIME tab 12/25/19 12/25/19 release Previous Rx's Medication Instructions Recorded hydroxyzine HCl 25 mg tablet See Rx Instructions .ROUTE 11/26/19 .COMPLEX #60 tab propranolol 10 mg tablet 10 mg PO BID #60 tab 12/25/19 atomoxetine 40 mg capsule 40 mg PO DAILY #30 cap 01/02/20 gabapentin 100 mg capsule 200 mg PO BID PRN #120 cap 01/02/20 levothyroxine 112 mcg tablet 112 mcg PO DAILY #30 tab 01/20/20 paliperidone 6 mg tablet,extended 6 mg PO QAM #30 tab 01/22/20 release 24 hr trazodone 150 mg tablet 150 mg PO BEDTIME PRN #30 tab 01/22/20 Allergies Allergy/AdvReac Type Severity Reaction Status Date / Time grass pollen [GRASS POLLEN] Allergy Unknown Verified 01/23/20 11:39 CAT DANDER Allergy Mild RASH Uncoded 12/25/19 14:25 DOG DANDER Allergy Mild RASH Uncoded 12/25/19 14:25 TREE POLLEN Allergy Mild CONGESTION Uncoded 12/25/19 14:25 Review of Systems Constitutional Constitutional: Denies headache(s) ENT Ears, Nose, Mouth, and Throat: Denies vertigo, Denies dizziness and Denies headache(s) Cardiovascular Cardiovascular: Denies chest pain and Denies dyspnea Respiratory Respiratory: Denies dyspnea Gastrointestinal Gastrointestinal: Denies abdominal pain, Denies nausea and Denies vomiting Genitourinary Genitourinary: Denies dysuria Genitourinary: Denies dysuria Integumentary/Breasts Skin/Breast: Denies rash Neurologic Neurologic: Denies vertigo, Denies dizziness and Denies headache(s) Psychiatric Psychiatric: Denies homicidal ideation and Reports suicidal ideation Comments: Racing thoughts, Hematologic/Lymphatic Hematologic/Lymphatic: Denies easy bleeding and Denies easy bruising Allergic/Immunologic Allergic/Immunologic: Denies urticaria Patient History Medical History (Updated 01/23/20 @ 16:33 by Rogelio Reynoso DO) ADHD (attention deficit hyperactivity disorder), combined type Chronic urticaria Enuresis Hayfever Papillary adenoma Thyroid enlargement Surgical History S/P subtotal thyroidectomy Status post appendectomy (2007) Family History Mother Asthma Diabetes mellitus ADHD Social History Smoking Status: Never smoker Smoking Status: Never smoker alcohol intake frequency: a few times a month Substance Use Type: marijuana Exam Initial Vital Signs Initial Vital Signs: Vital Signs Temperature 97.6 F 01/23/20 11:35 Pulse Rate 126 H 01/23/20 11:35 Respiratory Rate 15 01/23/20 11:35 Blood Pressure 121/74 01/23/20 11:35 Pulse Oximetry 97 01/23/20 11:35 Const General: cooperative and comfortable Limitations: mental status not altered HENMT Head: normal to inspection and normocephalic Resp Effort & Inspection: normal respiratory effort Auscultation: clear to auscultation bilaterally Cardio Rate: tachycardic Rhythm: regular rhythm GI Inspection: non-distended Palpation: soft Skin Lesions: no lesions Rashes: no rashes Neuro General: patient alert, patient awake and patient oriented x3 Cognition: normal cognition Speech: other (Slow speech) Extrem General: normal to inspection Psych Appearance: grossly normal and well kempt Speech and Movement: slowed movement and other (Slowed speech) Mood: No angry Affect: indifferent and blunted Attitude: cooperative Scores GCS Adriane coma scale eye opening: Spontaneous Adriane coma scale verbal response: Orientated [address] coma scale motor response: Obey commands [address] coma scale total score: 15 Course Orders Ordered: ED Orders 01/23/20 11:34 Consult to OUTBOUND SALES SPECIALIST - Endband Cutter Hand Stat EKG-12 Lead Stat 01/23/20 12:05 Acetaminophen Stat Complete Blood Count AUTO DIFF Stat Comprehensive Metabolic Panel Stat Ethanol (ETOH) Stat Lipase Stat Salicylate Stat Thyroid Stimulating Hormone Stat 01/23/20 12:15 COVID19 Stat 01/23/20 14:24 Urinalysis and Microscopic Stat Urine Drug Screen, Rapid Stat Vital Signs Vital signs: Vital Signs - 8 hr 01/23/20 11:35 01/23/20 11:36 01/23/20 12:00 Temperature 97.6 F Pulse Rate 121 H 125 H 113 H Respiratory Rate 15 43 H 36 H Blood Pressure 121/74 121/74 Pulse Oximetry 98 97 97 01/23/20 12:30 01/23/20 12:39 01/23/20 13:00 Temperature Pulse Rate 106 H 111 H 106 H Respiratory Rate 20 25 H 24 Blood Pressure 126/74 115/87 Pulse Oximetry 95 96 95 01/23/20 13:30 01/23/20 13:46 01/23/20 14:00 Temperature Pulse Rate 98 H 98 H 101 H Respiratory Rate 25 H 21 19 Blood Pressure 110/70 118/65 Pulse Oximetry 95 97 97 01/23/20 14:01 01/23/20 14:30 01/23/20 14:31 Temperature Pulse Rate 101 H 100 H 96 H Respiratory Rate 24 22 19 Blood Pressure 116/73 122/64 Pulse Oximetry 96 96 96 01/23/20 14:43 01/23/20 15:00 01/23/20 15:30 Temperature Pulse Rate 102 H 94 H 85 Respiratory Rate 18 22 19 Blood Pressure 130/81 108/68 115/67 Pulse Oximetry 97 96 95 01/23/20 16:00 01/23/20 16:23 Temperature Pulse Rate 79 86 Respiratory Rate 21 14 Blood Pressure 106/70 123/76 Pulse Oximetry 96 96 Medical Decision Making Medical Records Medical records reviewed: Yes I reviewed the patient's medical records. Lab Data Lab results reviewed: Yes I reviewed the patient's lab results. Result diagrams: 01/23/20 12:01/23/20 12:05 Labs: Lab Results 01/23/20 01/23/20 01/23/20 Range/Units 12: 12: 12:05 WBC 7.5 (4.5-11.0) X10^3/uL RBC 5.25 (4.5-5.9) X10^6/uL Hgb 14.8 (13.5-17.5) g/dL Hct 44.1 (41-53) % MCV 83.9 (80-100) fL MCH 28.2 (26-34) PG MCHC 33.6 (30-36) % RDW 13.7 (11.6-14.8) % Plt Count 328 (150-400) X10^3/uL Neut % (Auto) 68.4 (50-75) % Lymph % (Auto) 23.1 L (25-40) % [place] % (Auto) 7.4 (3-14) % Eos % (Auto) 0.9 L (2-4) % Baso % (Auto) 0.2 (0-2) % Neut # (Auto) 5200 (6450-2508) /uL Lymph # (Auto) 1700 (3881-1198) /uL [place] # (Auto) 600 (0-900) /uL Eos # (Auto) 100 (0-450) /uL Baso # (Auto) 0 (0-100) /uL Sodium 140 (137-145) mmol/L Potassium 4.5 (3.4-5.1) mmol/L Chloride 104 (98-107) mmol/L Carbon Dioxide 31 (22-32) mmol/L BUN 15 (9-20) mg/dL Creatinine 1.02 (0.66-1.25) mg/dL Estimated GFR > 60.0 (>60) mL/min BUN/Creatinine Ratio 14.7 (6-22) Glucose 93 (70-100) mg/dL Calcium 9.5 (8.4-10.2) mg/dL Total Bilirubin 1.1 (0.2-1.3) mg/dL AST 23 (17-59) IU/L ALT 21 (<50) IU/L Alkaline Phosphatase 73 (38-126) U/L Total Protein 7.9 (6.3-8.2) g/dL Albumin 4.6 (3.5-5.0) g/dL Globulin 3.3 (1.7-4.1) g/dL Albumin/Globulin Ratio 1.4 (1.0-2.8) Lipase 33 (23-300) U/L TSH 3.11 (0.47-4.68) uIU/mL Urine Color Urine Appearance Urine pH (4.5-8.0) Ur Specific [place] (1.000-1.035) Urine Protein (Negative) Urine Glucose (UA) (Negative) g/dL Urine Ketones (NEGATIVE) Urine Occult Blood (Negative) Urine Nitrate (Negative) Urine Bilirubin (NEGATIVE) Urine Urobilinogen (0.2) E.U./dL Ur Leukocyte Esterase (NEGATIVE) Urine RBC (0-5/HPF) Urine WBC (0-5/HPF) Urine Bacteria (None) Ur Culture Indicated? Micro UA Comment Salicylates < 1.0 (<20) mg/dL U Opiates 300ng/mL cut (Negative) Ur Oxycodone Screen (Negative) Urine Methadone Screen (Negative) Acetaminophen < 10 L (10-30) ug/mL Ur Barbiturates Screen (Negative) U Tricyclic Antidepress (Negative) Ur Phencyclidine Scrn (Negative) Ur Amphetamines Screen (Negative) U Methamphetamines Scrn (Negative) Ur MDMA Scrn (Ecstasy) (Negative) U Benzodiazepines Scrn (Negative) Urine Cocaine Screen (Negative) U Marijuana (THC) Screen (Negative) Ethyl Alcohol < 10 ( - 10) mg/dL COVID-19 PCR (Negative) 01/23/20 01/23/20 01/23/20 Range/Units 12:15 14:24 14:24 WBC (4.5-11.0) X10^3/uL RBC (4.5-5.9) X10^6/uL Hgb (13.5-17.5) g/dL Hct (41-53) % MCV (80-100) fL MCH (26-34) PG MCHC (30-36) % RDW (11.6-14.8) % Plt Count (150-400) X10^3/uL Neut % (Auto) (50-75) % Lymph % (Auto) (25-40) % [place] % (Auto) (3-14) % Eos % (Auto) (2-4) % Baso % (Auto) (0-2) % Neut # (Auto) (8224-0672) /uL Lymph # (Auto) (0627-0636) /uL [place] # (Auto) (0-900) /uL Eos # (Auto) (0-450) /uL Baso # (Auto) (0-100) /uL Sodium (137-145) mmol/L Potassium (3.4-5.1) mmol/L Chloride (98-107) mmol/L Carbon Dioxide (22-32) mmol/L BUN (9-20) mg/dL Creatinine (0.66-1.25) mg/dL Estimated GFR (>60) mL/min BUN/Creatinine Ratio (6-22) Glucose (70-100) mg/dL Calcium (8.4-10.2) mg/dL Total Bilirubin (0.2-1.3) mg/dL AST (17-59) IU/L ALT (<50) IU/L Alkaline Phosphatase (38-126) U/L Total Protein (6.3-8.2) g/dL Albumin (3.5-5.0) g/dL Globulin (1.7-4.1) g/dL Albumin/Globulin Ratio (1.0-2.8) Lipase (23-300) U/L TSH (0.47-4.68) uIU/mL Urine Color Yellow Urine Appearance Clear Urine pH 7.0 (4.5-8.0) Ur Specific [place] 1.015 (1.000-1.035) Urine Protein Negative (Negative) Urine Glucose (UA) Negative (Negative) g/dL Urine Ketones Negative (NEGATIVE) Urine Occult Blood Negative (Negative) Urine Nitrate Negative (Negative) Urine Bilirubin Negative (NEGATIVE) Urine Urobilinogen 0.2 (0.2) E.U./dL Ur Leukocyte Esterase Negative (NEGATIVE) Urine RBC None seen (0-5/HPF) Urine WBC None seen (0-5/HPF) Urine Bacteria None seen (None) Ur Culture Indicated? Cult not indicated Micro UA Comment Microscopic normal Salicylates (<20) mg/dL U Opiates 300ng/mL cut Negative (Negative) Ur Oxycodone Screen Negative (Negative) Urine Methadone Screen Negative (Negative) Acetaminophen (10-30) ug/mL Ur Barbiturates Screen Negative (Negative) U Tricyclic Antidepress Negative (Negative) Ur Phencyclidine Scrn Negative (Negative) Ur Amphetamines Screen Negative (Negative) U Methamphetamines Scrn Negative (Negative) Ur MDMA Scrn (Ecstasy) Negative (Negative) U Benzodiazepines Scrn Positive H (Negative) Urine Cocaine Screen Negative (Negative) U Marijuana (THC) Screen Negative (Negative) Ethyl Alcohol ( - 10) mg/dL COVID-19 PCR Negative (Negative) ECG Data Attestation: I personally reviewed and interpreted this ECG as follows: Prior ECG tracings: not available for review Interpretation: Sinus tachycardia Ventricular rate of 111 Normal axis Normal QRS Normal QTC No ST T wave changes MDM Narrative Medical decision making narrative: Patient states that his mind was racing last night. He states that these were not necessarily intrusive thoughts just he could not turn his mind off. He thought that this morning since he could turn his mind off that if he just took Ambien and killed himself then his mind would stop racing. I did contact poison Control regarding the ingestion of Ambien. They stated observation 4-6 hours after the ingestion. At 4 hours post ingestion patient states that he was not tired. Was tolerating oral intake. Was alert oriented x3 in a GCS of 15. Patient is currently medically cleared. His heart rate has improved. Low suspicion for other toxic ingestions. Patient was seen by social work. Patient has been stable. He is voluntary. Seen by social work. harvest worker fruit established accepting provider at [facility]. Patient will be transported. Discharge Plan Departure Patient Disposition: Xfer Psychiatric Hosp Clinical Impression: Depression, Overdose Referrals: Flavio Stevens MD [Primary Care Provider] -
--- NOTE | 2020-01-23 12:05 | PC.NURSE ---
patient states he has racing thoughts I'll think of a video game, then another video game. that will make me think of a tv show patient states if i can't get the thoughts to go away just kill myself I called poison control to notify them. check for etoh, tylenol, asa, uds, monitor breathing, spO2
[2020-01-23 12:11] LABS: Add Manual Diff / Slide Review NO; Basophils Absolute Auto 0 /uL (0-100); Basophils Percent Auto 0.2 % (0-2); Eosinophils Absolute Auto 100 /uL (0-450); Eosinophils Percent Auto 0.9 % (2-4); Hematocrit 44.1 % (41-53); Hemoglobin 14.8 g/dL (13.5-17.5); Lymphocytes Absolute Auto 1700 /uL (1100-4500); Lymphocytes Percent Auto 23.1 % (25-40); Mean Corpuscular HGB Conc 33.6 % (30-36); Mean Corpuscular Hemoglobin 28.2 PG (26-34); Mean Corpuscular Volume 83.9 fL (80-100); Monocytes Absolute Auto 600 /uL (0-900); Monocytes Percent Auto 7.4 % (3-14); Neutrophils Absolute Auto 5200 /uL (1500-7000); Neutrophils Percent Auto 68.4 % (50-75); Platelet Count 328 X10^3/uL (150-400); Red Blood Cell Count 5.25 X10^6/uL (4.5-5.9); Red Cell Distribution Width 13.7 % (11.6-14.8); White Blood Cell Count 7.5 X10^3/uL (4.5-11.0)
[2020-01-23 12:30] LABS: Acetaminophen < 10 ug/mL (10-30); Alanine Aminotransferase 21 IU/L (<50); Albumin 4.6 g/dL (3.5-5.0); Albumin Globulin Ratio 1.4 (1.0-2.8); Alkaline Phosphatase 73 U/L (38-126); Aspartate Aminotransferase 23 IU/L (17-59); BUN Creatinine Ratio 14.7 (6-22); Bilirubin Total 1.1 mg/dL (0.2-1.3); Blood Urea Nitrogen 15 mg/dL (9-20); Calcium 9.5 mg/dL (8.4-10.2); Carbon Dioxide 31 mmol/L (22-32); Chloride 104 mmol/L (98-107); Estimated Glomerular Filt Rate > 60.0 mL/min (>60); Ethanol (ETOH) < 10 mg/dL; Globulin 3.3 g/dL (1.7-4.1); Glucose 93 mg/dL (70-100); HEMOLYSIS < 15 (0-50); Lipase 33 U/L (23-300); Potassium 4.5 mmol/L (3.4-5.1); Salicylate < 1.0 mg/dL (<20); Sodium 140 mmol/L (137-145); Total Protein 7.9 g/dL (6.3-8.2)
[2020-01-23 12:36] LABS: COVID19 -Nasal RAPID Negative (Negative)
[2020-01-23 13:15] LABS: Thyroid Stimulating Hormone 3.11 uIU/mL (0.47-4.68)
[2020-01-23 14:29] LABS: Bacteria Urine None Seen; RBC Urine None Seen (0-5/HPF); WBC Urine None Seen (0-5/HPF)
--- NOTE | 2020-01-23 14:29 | PC.NURSE ---
Patient awake and oriented to situation. Provided with sandwich and chocolate milk. Changed into paper scrubs and all personal belongings removed from room and placed into patient belonging bag and locked in appropriate cupboard. Sitter just outside door for 1:1 monitoring. Patient remains in room 8 as denies any thoughts of self harm at this time, continuous 1:1 observation, and continued need to remain on monitor.
[2020-01-23 14:30] LABS: Appearance Urine UA CLEAR; Bilirubin Urine UA NEGATIVE (NEGATIVE); Color Urine UA YELLOW; Glucose Urine UA NEGATIVE (Negative); Ketones Urine UA NEGATIVE (NEGATIVE); Leukocyte Esterase Urine UA NEGATIVE (NEGATIVE); Nitrite Urine UA NEGATIVE (Negative); Occult Blood Urine UA NEGATIVE (Negative); Protein Urine UA NEGATIVE (Negative); Specific Gravity Urine UA 1.015 (1.000-1.035); Urobilinogen Urine UA 0.2 E.U./dL (0.2)
[2020-01-23 14:35] LABS: UR Morphine/Opiate cutoff 300 Negative (Negative); Ur Creatinine Normal (Normal); Ur Specific Gravity Normal (Normal); Urine Amphetamines Negative (Negative); Urine Barbiturates Negative (Negative); Urine Benzodiazepines Positive (Negative); Urine Cocaine Negative (Negative); Urine MDMA Negative (Negative); Urine Methadone Negative (Negative); Urine Methamphetamines Negative (Negative); Urine Oxycodone Negative (Negative); Urine Phencyclidine Negative (Negative); Urine Tetrahydrocannabinol Negative (Negative); Urine Tricyclic Antidepressant Negative (Negative); Urine pH Normal (Normal)
[2020-01-23 14:39] LABS: Culture Indicated Urine Cult Not Indicated; Urine Comments Microscopic Normal
--- NOTE | 2020-01-23 15:02 | CM.SWNOTE ---
DIESEL FITTER MECHANIC Assessment DIESEL FITTER MECHANIC - Stock Layer Assessment DIESEL FITTER MECHANIC - Stock Layer Assessment Start: 01/23/20 14:27 Freq: Status: Active Protocol: Document 01/23/20 14:28 PIOTR (Rec: 01/23/20 15:02 PIOTR [id number]) DIESEL FITTER MECHANIC/Stock Layer Assessment Time Spent with Patient Start date 01/23/20 Visit Start Time 13:50 End date 01/23/20 Visit End Time 14:25 Total time Care Management spent on 35 patient visit-in minutes Mental Health Screening Include Onset, Duration, Intensity Presenting Problem Patient presents to ED following an attempted suicide by overdose. Patient reports he has been experiencing racing thoughts for past 3 days with no relief, and attempted suicide to escape racing thought. Patient reports his thinking is maniacal while experiencing racing thoughts, but states that the thoughts are not about suicide or directing him to harm anyone. Precipitating Event(s) Patient and mother moved from [facility] into senior living 1 week prior to today's visit. Patient Strengths Patient is articulate in his explanation of racing thoughts and is calm and polite throughout visit. Current Behavioral Health Provider(s) Dr. Parra- [facility]- Include Facility, Provider, Ph. # [phone] Kourtney- Counselor at [facility]. Mental Health and Chemical Patient has hx of depression, Dependency SI, suicide attempts, anxiety, ADHD, and Psychosis. Patient denies other ETOH or substance use. Psychiatric Hospitalizations (date(s)/ Patient hospitalized at [facility] [place],. Patient hospitalized in [place], [place] a few years ago . Psychosocial information & Support Patient is a 19 y/o male who Systems lives with his mother in a local senior living. Patient is currently unemployed and not attending school. Patient reports mother is strong support. School/Work None current. Legal Concerns Legal Matters - Outstanding Issues None reported. Mental Status Orientation (Person/Place/Time) Oriented x3 Stated Mood good Affect (Congruent with Mood?) Flat, stable, congruent with thought content. Thought Content - Specify/Describe Patient reports recently Obsessions, Delusions, Hallucinations experiencing racing thoughts that he had been unable to escape/find relief from. Patient reports that there are many triggers to his thoughts , and states that an opening in a conversation that I overhear can trigger the start of his racing thoughts. Patient states he does not know what helps him escape these thoughts, and that they often persist after sleep. No visual or audio hallucinations observed or reported. Thought Processes (Fjgemqg-Amqkbmre-Cdzr Coherent Xwavmemm-Ftxgdetg-Fydwajfqbd- Karhanckqdbzjx-Atjkabe-Npjagacqjiwr- Thought Blocking) Speech (Enwcov-Ybjk-Exekmxm-Rapid-Soft- Slow Loud-Pressured) Motor (Qcenfb-Ndtijhbdy-Orqp-Other) Slow Insight (Ezdg-Kahs-Jvsv/Limited) Zxfn-lg-xxgc Judgement (Tdiq-Yona-Lhkr/Limited) Kvbq-np-knin Impulse Control (Adequate-Impaired) Adequate in assessment Memory (Xovuwmhio-Nxlyuv-Xraumy, Intact for interview, not Impaired-Intact) formally assessed. Concentration (Intact-Impaired) Intact Attention (Intact-Impaired) Intact Behavior (Appropriate-Inappropriate) Appropriate Risk Assessment Suicidal Ideation (Plan) Yes Homicidal Ideation (Plan) No Comment Patient denies HI. Patient attempted suicide by overdose on Ambien prior to today's ED visit. Patient states he is currently not experiencing racing thoughts and does not want to kill himself, but explains that his racing thoughts can escalate him to the point of considering suicide quickly for relief from racing thoughts. Intervention Intervention DIESEL FITTER MECHANIC meets with patient. Patient discusses racing thoughts. It's like a spiral, and if I try to think about something else, it gets connected to the spiral. Patient explains his current experience of racing thoughts has lasted for roughly 3 days, and he attempted suicide this morning for relief from racing thoughts. Patient and DIESEL FITTER MECHANIC discuss patient's hopes for after visit. Patient reports that he wants a prescription for Ambien, as he believes this helps with racing thoughts. Patient and DIESEL FITTER MECHANIC discuss inpatient behavioral health treatment for medication management to help patient better manage racing thoughts. At this time, it is the recommendation of this DIESEL FITTER MECHANIC that patient receive inpatient behavioral health stabilization. Patient provides permission for DIESEL FITTER MECHANIC to contact Dr. Parra- patient's psychiatrist. Dr. Parra states he agrees with recommendation for inpatient behavioral health treatment. DIESEL FITTER MECHANIC meets again with patient and discusses inpatient treatment again. Patient expresses understanding and states that he is agreeable to inpatient behavioral health treatment. DIESEL FITTER MECHANIC updates ED provider Dr. Reynoso who expresses understanding and agreement with plan. Plan RA Plan DIESEL FITTER MECHANIC will seek behavioral health inpatient treatment for patient. ARNIE Kuo
--- NOTE | 2020-01-23 16:54 | CM.SWNOTE ---
SOFTWARE SALES Note Following assessment, SOFTWARE SALES contacts [facility] seeking inpatient placement for patient. SOFTWARE SALES speaks to Callie, who informs SOFTWARE SALES that they have open beds, completes phone screening, and requests that clinical packet be faxed to [facility]. SOFTWARE SALES faxes clinical packet to [facility] at 1325. At 1625 Callie calls SOFTWARE SALES and informs SOFTWARE SALES that patient has been accepted for voluntary treatment. Details for transfer are confirmed as described below: Accepted to [facility]. Accepting provider: Dr. Agustin Hilario. [id number] [phone]. Intake Contact: Callie. Check in at 2030. Please call [id number] once transportation arranged. SOFTWARE SALES puts details of acceptance in EMR comments, informs Dr. Reynoso, [facility], and ANGELA Paula. [facility] to arrange transport. SOFTWARE SALES updates patient. Patient and SOFTWARE SALES review reasoning behind recommendation for inpatient. Patient remains agreeable to transfer care and participate in treatment at [facility]. SOFTWARE SALES then receives call from patient?s mother. Prior to taking call, SOFTWARE SALES re-enters patient room and obtains verbal permission to discuss information related to today?s visit and mental health with patient?s mother. SOFTWARE SALES then picks up phone and speaks with patient?s mother. SOFTWARE SALES informs patient?s mother of plan for transfer to [facility]. Mother informs SOFTWARE SALES that patient?s racing thoughts have caused patient significant distress over previous [address]: patient to transfer to inpatient behavioral health treatment at [facility] at 2030 01/23/20 ARNIE Kuo
--- NOTE | 2020-01-23 17:25 | PC.NURSE ---
Patient provided with dinner tray. Remains under 1:1 observation.
--- NOTE | 2020-01-23 18:15 | PC.NURSE ---
patient's mother in room
--- NOTE | 2020-01-23 19:03 | PC.NURSE ---
Pt lying on gurney quietly, Mother at bedside
--- NOTE | 2020-01-23 20:00 | PC.NURSE ---
[facility] arrived for pt transport
[2020-01-23] MEDS: ONDANSETRON 4 MG ODT SL (20:02)
== END 2020-01-23 20:07 ==
PROVIDERS: Emergency Provider Emergency Medicine; Family Provider Family Medicine; PCP Family Medicine
DX: T42.6X2A Poisoning by other antiepileptic and sedative-hypnotic drugs, intentional self-harm, initial encounter (principal); F32.9 Major depressive disorder, single episode, unspecified; F90.9 Attention-deficit hyperactivity disorder, unspecified type; R00.0 Tachycardia, unspecified
CPT/HCPCS: 36415; 80053; 80305; 80320; 80329; 81001; 83690; 84443; 85025; 87635; 93005; 93010; 99284; G0480

== ENCOUNTER → 2020-12-08 12:51 | Outpatient (CLI) | payer OTHER, MEDICAID, SELFPAY ==
[2020-12-08 14:54] LABS: Alanine Aminotransferase 29 IU/L (<50); Albumin 4.6 g/dL (3.5-5.0); Albumin Globulin Ratio 1.5 (1.0-2.8); Alkaline Phosphatase 115 U/L (38-126); Aspartate Aminotransferase 25 IU/L (17-59); BUN Creatinine Ratio 17.7 (6-22); Bilirubin Total 0.5 mg/dL (0.2-1.3); Blood Urea Nitrogen 17 mg/dL (9-20); Calcium 9.8 mg/dL (8.4-10.2); Carbon Dioxide 24 mmol/L (22-32); Chloride 105 mmol/L (98-107); Estimated Glomerular Filt Rate > 60.0 mL/min (>60); Glucose 87 mg/dL (70-100); HEMOLYSIS < 15 (0-50); Potassium 4.8 mmol/L (3.4-5.1); Sodium 140 mmol/L (137-145); Total Protein 7.6 g/dL (6.3-8.2)
[2020-12-08 15:24] LABS: Thyroid Stimulating Hormone 1.78 uIU/mL (0.47-4.68)
[2020-12-09 07:36] LABS: Valproic Acid (Depakene) Total < 4 ug/mL (50-100)
== END ==
PROVIDERS: Psychiatry & Neurology Psychiatry; Family Provider Family Medicine; PCP Family Medicine; Referring Provider Family Medicine; Visit Provider Family Medicine
DX: E03.9 Hypothyroidism, unspecified (principal); F29 Unspecified psychosis not due to a substance or known physiological condition
CPT/HCPCS: 36415; 80053; 80164; 84439; 84443

== ENCOUNTER 2021-07-25 17:58 | Emergency (ER) | payer OTHER, MEDICAID, SELFPAY ==
[2021-07-25 18:17] VITALS: BP 149/85; PULSE 116; RESP 20; TEMP 37.2; O2SAT 97
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
[2021-07-25] MEDS: MAG HYDROX/ALUMINUM/SIMETH SUS 20 ML, LIDOCAINE VISCOUS 2% 15 ML PO (20:19)
[2021-07-25 20:53] LABS: COVID19 -Nasal RAPID Negative (Negative)
== END 2021-07-25 20:57 | disposition home or self-care (01) ==
PROVIDERS: Emergency Provider Emergency Medicine; Family Provider Family Medicine; PCP Family Medicine
DX: T28.0XXA Burn of mouth and pharynx, initial encounter (principal); Z20.822 Contact with and (suspected) exposure to COVID-19
CPT/HCPCS: 87635; 99283; C9803

== ENCOUNTER 2021-08-28 16:04 | Emergency (ER) | payer OTHER, MEDICAID, SELFPAY ==
[2021-08-28 16:20] VITALS: BP 132/83; PULSE 98; RESP 18; TEMP 37.2; O2SAT 96; BMI 38.2
--- NOTE | 2021-08-28 17:15 | PC.NURSE ---
Patient denies pain now.
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
[2021-08-28] MEDS: MAG HYDROX/ALUMINUM/SIMETH SUS 20 ML, LIDOCAINE VISCOUS 2% 15 ML PO (18:07)
[2021-08-28 18:12] VITALS: BP 125/78; PULSE 93; RESP 18; O2SAT 98
== END 2021-08-28 18:14 | disposition home or self-care (01) ==
PROVIDERS: Emergency Provider Registered Nurse; Family Provider Family Medicine; PCP Family Medicine
DX: T59.811A Toxic effect of smoke, accidental (unintentional), initial encounter (principal); R07.0 Pain in throat
CPT/HCPCS: 99283

== ENCOUNTER → 2021-12-10 14:05 | Outpatient (CLI) | payer OTHER, MEDICAID, SELFPAY ==
[2021-12-10 15:47] LABS: Add Manual Diff / Slide Review NO; Basophils Absolute Auto 0 /uL (0-100); Basophils Percent Auto 0.2 % (0-2); Eosinophils Absolute Auto 100 /uL (0-450); Eosinophils Percent Auto 0.9 % (2-4); Hematocrit 45.6 % (41-53); Hemoglobin 15.6 g/dL (13.5-17.5); Lymphocytes Absolute Auto 1700 /uL (1100-4500); Lymphocytes Percent Auto 22.9 % (25-40); Mean Corpuscular HGB Conc 34.2 % (30-36); Mean Corpuscular Hemoglobin 27.8 PG (26-34); Mean Corpuscular Volume 81.5 fL (80-100); Monocytes Absolute Auto 700 /uL (0-900); Monocytes Percent Auto 8.7 % (3-14); Neutrophils Absolute Auto 5100 /uL (1500-7000); Neutrophils Percent Auto 67.3 % (50-75); Platelet Count 348 X10^3/uL (150-400); Red Blood Cell Count 5.59 X10^6/uL (4.5-5.9); Red Cell Distribution Width 13.8 % (11.6-14.8); White Blood Cell Count 7.6 X10^3/uL (4.5-11.0)
[2021-12-10 16:06] LABS: Alanine Aminotransferase 22 IU/L (<50); Albumin 4.5 g/dL (3.5-5.0); Albumin Globulin Ratio 1.3 (1.0-2.8); Alkaline Phosphatase 108 U/L (38-126); Aspartate Aminotransferase 20 IU/L (17-59); BUN Creatinine Ratio 7.6 (6-22); Bilirubin Total 1.5 mg/dL (0.2-1.3); Blood Urea Nitrogen 8 mg/dL (9-20); Calcium 9.2 mg/dL (8.4-10.2); Carbon Dioxide 25 mmol/L (22-32); Chloride 101 mmol/L (98-107); Estimated Glomerular Filt Rate > 60 mL/min (>60); Globulin 3.5 g/dL (1.7-4.1); Glucose 89 mg/dL (70-100); HEMOLYSIS < 15 (0-50); Potassium 3.6 mmol/L (3.4-5.1); Sodium 139 mmol/L (137-145)
[2021-12-10 16:34] LABS: Free T4, Direct Thyroxine 2.04 ng/dL (0.78-2.19)
[2021-12-10 16:47] LABS: Thyroid Stimulating Hormone 0.335 uIU/mL (0.47-4.68)
== END ==
PROVIDERS: Family Provider Family Medicine; PCP Family Medicine; Referring Provider Family Medicine; Visit Provider Family Medicine
DX: E03.9 Hypothyroidism, unspecified (principal); F90.0 Attention-deficit hyperactivity disorder, predominantly inattentive type; R10.13 Epigastric pain
CPT/HCPCS: 36415; 80053; 84439; 84443; 85025

== ENCOUNTER → 2022-10-13 14:06 | Outpatient (CLI) | payer OTHER, MEDICAID, SELFPAY ==
[2022-10-13 15:28] LABS: Add Manual Diff / Slide Review NO; Basophils Absolute Auto 0 /uL (0-100); Basophils Percent Auto 0.1 % (0-2); Eosinophils Absolute Auto 100 /uL (0-450); Eosinophils Percent Auto 1.2 % (2-4); Hematocrit 46.2 % (41-53); Hemoglobin 15.8 g/dL (13.5-17.5); Lymphocytes Absolute Auto 1900 /uL (1100-4500); Lymphocytes Percent Auto 28.9 % (25-40); Mean Corpuscular HGB Conc 34.3 % (30-36); Mean Corpuscular Hemoglobin 28.9 PG (26-34); Mean Corpuscular Volume 84.3 fL (80-100); Monocytes Absolute Auto 400 /uL (0-900); Monocytes Percent Auto 6.7 % (3-14); Neutrophils Absolute Auto 4200 /uL (1500-7000); Neutrophils Percent Auto 63.1 % (50-75); Platelet Count 322 X10^3/uL (150-400); Red Blood Cell Count 5.48 X10^6/uL (4.5-5.9); White Blood Cell Count 6.6 X10^3/uL (4.5-11.0)
[2022-10-13 15:51] LABS: Alanine Aminotransferase 38 IU/L (<50); Albumin 4.8 g/dL (3.5-5.0); Albumin Globulin Ratio 1.5 (1.0-2.8); Alkaline Phosphatase 81 U/L (38-126); Aspartate Aminotransferase 84 IU/L (17-59); BUN Creatinine Ratio 15.2 (6-22); Bilirubin Total 1.2 mg/dL (0.2-1.3); Blood Urea Nitrogen 16 mg/dL (9-20); Calcium 9.7 mg/dL (8.4-10.2); Carbon Dioxide 26 mmol/L (22-32); Chloride 103 mmol/L (98-107); Cholesterol 200 mg/dL (140-199); Estimated Glomerular Filt Rate > 60 mL/min (>60); Globulin 3.1 g/dL (1.7-4.1); Glucose 85 mg/dL (70-100); HDL Cholesterol 51 mg/dL (40-60); HEMOLYSIS < 15 (0-50); LDL Cholesterol Calculated 126 mg/dL (<100); Potassium 4.5 mmol/L (3.4-5.1); Sodium 141 mmol/L (137-145); Total Protein 7.9 g/dL (6.3-8.2); Triglycerides 115 mg/dL (35-150)
[2022-10-13 16:07] LABS: Free T4, Direct Thyroxine 1.49 ng/dL (0.78-2.19)
[2022-10-13 16:21] LABS: Thyroid Stimulating Hormone 0.155 uIU/mL (0.47-4.68)
== END ==
PROVIDERS: Family Provider Family Medicine; PCP Family Medicine; Referring Provider Family Medicine; Visit Provider Family Medicine
DX: E03.9 Hypothyroidism, unspecified (principal); F25.9 Schizoaffective disorder, unspecified; K21.00 Gastro-esophageal reflux disease with esophagitis, without bleeding; R10.13 Epigastric pain
CPT/HCPCS: 36415; 80053; 80061; 84439; 84443; 85025

== ENCOUNTER → 2023-03-09 13:43 | Outpatient (CLI) | payer OTHER, MEDICAID, SELFPAY | PROVIDERS: Family Provider Family Medicine; PCP Family Medicine; Visit Provider Nurse Practitioner Family | DX: J02.9 Acute pharyngitis, unspecified (principal) | CPT/HCPCS: 87070; 87077; 87185 ==

== ENCOUNTER → 2023-03-09 14:02 | Outpatient (CLI) | payer OTHER, MEDICAID, SELFPAY ==
[2023-03-09 15:20] LABS: Add Manual Diff / Slide Review NO; Basophils Absolute Auto 0 /uL (0-100); Basophils Percent Auto 0.1 % (0-2); Eosinophils Absolute Auto 100 /uL (0-450); Eosinophils Percent Auto 0.9 % (2-4); Hematocrit 40.5 % (41-53); Hemoglobin 13.9 g/dL (13.5-17.5); Lymphocytes Absolute Auto 2000 /uL (1100-4500); Lymphocytes Percent Auto 22.3 % (25-40); Mean Corpuscular HGB Conc 34.3 % (30-36); Mean Corpuscular Hemoglobin 28.9 PG (26-34); Mean Corpuscular Volume 84.4 fL (80-100); Monocytes Absolute Auto 800 /uL (0-900); Monocytes Percent Auto 8.9 % (3-14); Neutrophils Absolute Auto 6200 /uL (1500-7000); Neutrophils Percent Auto 67.8 % (50-75); Platelet Count 357 X10^3/uL (150-400); Red Cell Distribution Width 13.9 % (11.6-14.8); White Blood Cell Count 9.2 X10^3/uL (4.5-11.0)
[2023-03-09 15:40] LABS: Alanine Aminotransferase 18 IU/L (<50); Aspartate Aminotransferase 24 IU/L (17-59); Cholesterol 190 mg/dL (140-199); Estimated Glomerular Filt Rate > 60 mL/min (>60); HDL Cholesterol 52 mg/dL (40-60); LDL Cholesterol Calculated 118 mg/dL (<100); Triglycerides 101 mg/dL (35-150)
[2023-03-09 16:14] LABS: Testosterone 82.1 ng/dL (132-813)
[2023-03-09 16:47] LABS: Estradiol, Total 165.6 pg/mL
== END ==
PROVIDERS: Family Provider Family Medicine; PCP Family Medicine; Referring Provider Internal Medicine Endocrinology, Diabetes & Metabolism; Visit Provider Internal Medicine Endocrinology, Diabetes & Metabolism
DX: J02.9 Acute pharyngitis, unspecified (principal); Z78.9 Other specified health status
CPT/HCPCS: 36415; 80061; 82565; 82670; 84403; 84450; 84460; 85025; 87070

== ENCOUNTER → 2023-04-07 09:04 | Outpatient (CLI) | payer OTHER, MEDICAID, SELFPAY | PROVIDERS: Family Provider Family Medicine; PCP Family Medicine; Visit Provider Registered Nurse | DX: J02.9 Acute pharyngitis, unspecified (principal) | CPT/HCPCS: 87070; 87880 ==

== ENCOUNTER → 2023-10-20 17:30 | Outpatient (CLI) | payer OTHER, MEDICAID, SELFPAY | PROVIDERS: Family Provider Family Medicine; PCP Family Medicine; Visit Provider Nurse Practitioner Family | DX: J02.9 Acute pharyngitis, unspecified (principal) | CPT/HCPCS: 87070 ==

== ENCOUNTER → 2024-02-26 14:22 | Outpatient (CLI) | payer OTHER, SELFPAY ==
[2024-02-26 15:10] LABS: Add Manual Diff / Slide Review NO; Basophils Absolute Auto 0 /uL (0-100); Basophils Percent Auto 0.2 % (0-2); Eosinophils Absolute Auto 200 /uL (0-450); Eosinophils Percent Auto 2.6 % (2-4); Hematocrit 38.1 % (41-53); Hemoglobin 13.1 g/dL (13.5-17.5); Lymphocytes Absolute Auto 1500 /uL (1100-4500); Lymphocytes Percent Auto 22.6 % (25-40); Mean Corpuscular HGB Conc 34.4 % (30-36); Mean Corpuscular Hemoglobin 29.7 PG (26-34); Mean Corpuscular Volume 86.3 fL (80-100); Monocytes Absolute Auto 300 /uL (0-900); Monocytes Percent Auto 5.1 % (3-14); Neutrophils Absolute Auto 4700 /uL (1500-7000); Neutrophils Percent Auto 69.5 % (50-75); Platelet Count 321 X10^3/uL (150-400); Red Blood Cell Count 4.41 X10^6/uL (4.5-5.9); Red Cell Distribution Width 13.7 % (11.6-14.8); White Blood Cell Count 6.7 X10^3/uL (4.5-11.0)
[2024-02-26 15:26] LABS: Alanine Aminotransferase 16 IU/L (<50); Albumin 4.4 g/dL (3.5-5.0); Albumin Globulin Ratio 1.5 (1.0-2.8); Alkaline Phosphatase 57 U/L (38-126); Aspartate Aminotransferase 23 IU/L (17-59); BUN Creatinine Ratio 18.8 (6-22); Bilirubin Total 1.6 mg/dL (0.2-1.3); Blood Urea Nitrogen 16 mg/dL (9-20); Carbon Dioxide 26 mmol/L (22-32); Chloride 106 mmol/L (98-107); Estimated Glomerular Filt Rate > 60 mL/min (>60); Glucose 96 mg/dL (70-100); HEMOLYSIS < 15 (0-50); Potassium 3.9 mmol/L (3.4-5.1); Sodium 138 mmol/L (137-145); Total Protein 7.4 g/dL (6.3-8.2)
[2024-02-26 15:42] LABS: Free T4, Direct Thyroxine 1.42 ng/dL (0.78-2.19)
[2024-02-26 15:56] LABS: Thyroid Stimulating Hormone 0.826 uIU/mL (0.47-4.68)
== END ==
PROVIDERS: Family Provider Family Medicine; PCP Family Medicine; Referring Provider Family Medicine; Visit Provider Family Medicine
DX: E03.9 Hypothyroidism, unspecified (principal); K21.00 Gastro-esophageal reflux disease with esophagitis, without bleeding; F90.0 Attention-deficit hyperactivity disorder, predominantly inattentive type; F41.9 Anxiety disorder, unspecified; F32.A Depression, unspecified; F40.10 Social phobia, unspecified
CPT/HCPCS: 36415; 80053; 84439; 84443; 85025; 99214